=== PATIENT | female | born 1995 | race Caucasian/White ===

== ENCOUNTER 2017-04-25 08:17 | Inpatient (IN) | payer BC ==
[~2017-04-25] VITALS: Ht 157.5 cm; Wt 78.0 kg
[2017-04-25] VITALS (17 sets, daily range): BP systolic 116–174; BP diastolic 56–79
[~2017-04-25 08:17] MED LIST: BREAST PUMP MC; CHROMAGEN,1 CAPSULE PO; IBUPROFEN800 MG PO; PRENATAL TABLE1 EAC3 PO
[2017-04-25 09:05] LABS: EOSINOPHIL COUNT 0.1 K/uL (0-0.3); HEMATOCRIT 36.4 % (36.0-46.0); IMMATURE GRANULOCYTE (%) 0.6 % (0.0-0.7); IMMATURE GRANULOCYTE COUNT 0.1 K/uL; INSTRUMENT ABS NEUTROPHIL CT 5.9 K/uL; LYMPHOCYTE COUNT 1.8 K/uL (1.0-2.8); MCH 27.6 PG (29.0-34.0); MCHC 32.4 G/DL (30.0-36.0); MONOCYTE (%) 4.7 % (3-12); MONOCYTE COUNT 0.4 K/uL (0-0.8); NEUTROPHIL (%) 71.3 % (45-76); NEUTROPHIL COUNT 5.9 K/uL (1.8-6.4); PLATELET COUNT 189 K/uL (156-360); RBC DIS.WIDTH-CV 14.2 % (11.8-14.6); RBC DIS.WIDTH-SD 43.7 % (39-53); RED BLOOD COUNT 4.28 M/uL (3.80-5.20); WHITE BLOOD COUNT 8.3 K/uL (4.1-10.2)
[2017-04-26 07:07] LABS: EOSINOPHIL (%) 0.6 % (0-5); EOSINOPHIL COUNT 0.1 K/uL (0-0.3); HEMATOCRIT 29.6 % (36.0-46.0); IMMATURE GRANULOCYTE (%) 0.4 % (0.0-0.7); INSTRUMENT ABS NEUTROPHIL CT 7.6 K/uL; LYMPHOCYTE COUNT 2.4 K/uL (1.0-2.8); MCH 28.7 PG (29.0-34.0); MCHC 33.8 G/DL (30.0-36.0); MCV 84.8 FL (83-99); MEAN PLAT.VOLUME 10.2 uM^3 (9.5-12.4); MONOCYTE (%) 5.1 % (3-12); MONOCYTE COUNT 0.5 K/uL (0-0.8); NEUTROPHIL (%) 71.1 % (45-76); NEUTROPHIL COUNT 7.6 K/uL (1.8-6.4); PLATELET COUNT 178 K/uL (156-360); RBC DIS.WIDTH-CV 14.6 % (11.8-14.6); RBC DIS.WIDTH-SD 44.3 % (39-53); RED BLOOD COUNT 3.49 M/uL (3.80-5.20); WHITE BLOOD COUNT 10.7 K/uL (4.1-10.2)
[2017-04-26 07:23] VITALS: BP 109/78
[2017-04-26 16:21] VITALS: BP 102/73
[2017-04-27] MEDS ORDERED: IBUPROFEN800 MG PO (08:37)
== END 2017-04-27 15:33 | disposition home or self-care (01) | DRG 774 ==
LOC: LDRP-OP 08:17 → 2WEST 08:19 → LDRP-OP 15:46 → 2WEST 18:30 → LDRP-OP 05-29 16:04
PROVIDERS: Advanced Practice Midwife
PROC: 10E0XZZ Delivery of Products of Conception, External Approach (ICD-10-PCS; principal; 2017-04-25)
PROC: 3E0P7GC Introduction of Other Therapeutic Substance into Female Reproductive, Via Natural or Artificial Opening (ICD-10-PCS; 2017-04-25)
DX: O48.0 Post-term pregnancy (principal); O99.824 Streptococcus B carrier state complicating childbirth; O73.1 Retained portions of placenta and membranes, without hemorrhage; Z3A.41 41 weeks gestation of pregnancy; Z37.0 Single live birth
CPT/HCPCS: 85025; J0595; J2540; J7120

== ENCOUNTER 2017-12-10 23:09 | Emergency (ER) | payer BC ==
[~2017-12-10] VITALS: Ht 152.4 cm; Wt 63.7 kg
[2017-12-11 00:06] LABS: HEMOGLOBIN 12.7 G/DL (11.9-15.5); MCH 28.4 PG (29.0-34.0); MCHC 34.3 G/DL (30.0-36.0); MCV 82.8 FL (83-99); PLATELET COUNT 219 K/uL (156-360); RBC DIS.WIDTH-CV 11.9 % (11.8-14.6); RBC DIS.WIDTH-SD 36.1 % (39-53); RED BLOOD COUNT 4.47 M/uL (3.80-5.20); WHITE BLOOD COUNT 6.4 K/uL (4.1-10.2)
[2017-12-11 00:22] LABS: CHLORIDE 107 mEq/L (99-109); POTASSIUM 3.6 mEq/L (3.7-5.4); SODIUM 142 mEq/L (136-147)
[2017-12-11 00:24] LABS: GLUCOSE 83 mg/dL (70-99)
[2017-12-11 00:28] LABS: CREATININE 0.7 mg/dL (0.6-1.3); GFR ESTIMATE (CALCULATED) > 59 mL/min/
[2017-12-11 00:29] LABS: UREA NITROGEN (BUN) 16 mg/dL (9-23)
[2017-12-11 00:31] LABS: TROP-I INTERPRETATION NEGATIVE; TROPONIN-I < 0.01 ng/mL (0.0-0.30)
[2017-12-11 01:02] LABS: APPEARANCE CLEAR ((CLEAR)); BILIRUBIN NEGATIVE; BLOOD LARGE; COLOR STRAW ((YELLOW)); GLUCOSE (STRIP) NEGATIVE; KETONES NEGATIVE; LEUKOCYTES NEGATIVE; NITRITE NEGATIVE; PROTEIN (STRIP) NEGATIVE; SPECIFIC GRAVITY 1.008 (1.000-1.030); UROBILINOGEN 0.2 MG/DL (0.2-1.0)
[2017-12-11 01:05] LABS: BACTERIA NONE SEEN /HPF; EPITHELIAL CELLS RARE /HPF; MUCUS NONE SEEN /LPF; RED BLOOD CELLS TNTC /HPF (0-5); UCUL ADDED? YES; WHITE BLOOD CELLS 0-5 /HPF (0-5)
[2017-12-11 01:32] VITALS: BP 119/67
== END 2017-12-11 01:38 | disposition home or self-care (01) ==
LOC: EME → EDBD 23:09 → EME 12-11 01:38
PROVIDERS: Emergency Medicine
DX: R55 Syncope and collapse (principal); R01.1 Cardiac murmur, unspecified; I49.8 Other specified cardiac arrhythmias; Z86.69 Personal history of other diseases of the nervous system and sense organs; Z88.6 Allergy status to analgesic agent; Z91.048 Other nonmedicinal substance allergy status
CPT/HCPCS: 80048; 81003; 81025; 84484; 85027; 87086; 93005; 99281; 99285; J7030